=== PATIENT | female | born 2000 | race Caucasian/White ===

== ENCOUNTER → 2022-05-25 | Outpatient (CLI) | payer OTHER ==
--- NOTE | 2022-05-25 13:35 | US ---
EXAMINATION TYPE: US transvaginal DATE OF EXAM: 05/25/2022 COMPARISON: NONE CLINICAL HISTORY: N92.6 IRREGULAR MENSTRUATION, UNSPECIFIED. Missed menses. Patient on oral contracep tive x 2 years. No pelvic pain. TECHNIQUE: Transvaginal (TV). Date of LMP: 05/14/2022 EXAM MEASUREMENTS: Uterus: 5.8 x 5.0 x 3.3 cm Endometrial Stripe: 0.5 cm Right Ovary: 4.7 x 3.5 x 3.5 cm. 30.15 ml volume Left Ovary: 3.4 x 1.6 x 1.7 cm 1. Uterus: Anteverted Appears wnl 2. Endometrium: Measures 0.5 cm 3. Right Ovary: Appears enlarged. Arterial and venous flow shown. Complex area seen: 3.2 x 2.1 x 2.7 cm. Multiple circular hyperechoic structures seen within anechoic areas. 4. Left Ovary: Appears wnl 5. Bilateral Adnexa: Fluid seen within right and left adnexa. 6. Posterior cul-de-sac: Appears wnl IMPRESSION: 1. No evidence for acute process. 2. Bilateral ovarian follicular changes and right ovarian cyst measuring up to 3.2 cm. 3. Trace fluid within the adnexa. 4. Endometrium within normal limits for thickness.
== END | disposition home or self-care (01) ==
LOC: RADUSWWP 12:23
PROVIDERS: ATTEND Family Medicine
DX: N83.201 Unspecified ovarian cyst, right side (principal); N92.6 Irregular menstruation, unspecified
CPT/HCPCS: 76830

== ENCOUNTER → 2023-11-26 | Outpatient (CLI) | payer BC ==
--- NOTE | 2023-11-27 07:57 | XR ---
EXAMINATION TYPE: XR shoulder complete LT DATE OF EXAM: 11/26/2023 COMPARISON: NONE HISTORY: Pain TECHNIQUE: Shoulder examined in 3 projections. FINDINGS: The humeral head articulates with the glenoid. The acromio-clavicular junction is normal. No acute fractures or dislocations are evident. A follow up study can be performed 7-10 days from acute trauma for continued pain. MRI can be perfor med if soft tissue evaluation would be of benefit. IMPRESSION: 1. No acute osseous shoulder abnormality.
== END | disposition home or self-care (01) ==
LOC: RADXRMAIN 18:09
PROVIDERS: ATTEND Family Medicine
DX: M25.512 Pain in left shoulder (principal)